=== PATIENT | male | born 1950 | race Caucasian/White ===

== ENCOUNTER 2016-11-28 10:11 | Emergency (ER) | payer OTHER ==
[~2016-11-28] VITALS: Ht 167.6 cm; Wt 88.4 kg
[2016-11-28 10:57] LABS: BASOPHIL COUNT 0.1 K/uL (0-0.1); EOSINOPHIL (%) 3.1 % (0-5); EOSINOPHIL COUNT 0.3 K/uL (0-0.3); HEMATOCRIT 44.7 % (38.0-50.0); IMMATURE GRANULOCYTE (%) 0.3 % (0.0-0.7); LYMPHOCYTE COUNT 2.1 K/uL (1.0-2.8); MCH 33.6 PG (29.0-34.0); MCHC 34.5 G/DL (30.0-36.0); MCV 97.4 FL (86-99); MEAN PLAT.VOLUME 8.7 uM^3 (9.0-12.4); MONOCYTE (%) 7.2 % (3-12); MONOCYTE COUNT 0.6 K/uL (0-0.8); NEUTROPHIL (%) 62.3 % (45-76); PLATELET COUNT 260 K/uL (156-360); RBC DIS.WIDTH-CV 13.4 % (11.8-14.6); RBC DIS.WIDTH-SD 48.8 % (39-53); RED BLOOD COUNT 4.59 M/uL (4.00-5.50)
[2016-11-28 11:08] LABS: CHLORIDE 104 mEq/L (99-109); POTASSIUM 4.3 mEq/L (3.7-5.4); SODIUM 141 mEq/L (136-147)
[2016-11-28 11:10] LABS: GLUCOSE 100 mg/dL (70-99)
[2016-11-28 11:11] LABS: ANION GAP 11 MEQ/L (2-14)
[2016-11-28 11:14] LABS: GFR ESTIMATE (CALCULATED) > 59 mL/min/
[2016-11-28 11:15] LABS: UREA NITROGEN (BUN) 16 mg/dL (9-23)
[2016-11-28 11:16] LABS: CREATINE KINASE 232 IU/L (1-294); TOTAL CK 232 IU/L (1-294)
[2016-11-28 11:26] LABS: CK-MB 7.5 ng/mL (0.0-4.9)
[2016-11-28 13:12] VITALS: BP 145/77
== END 2016-11-28 13:12 | disposition home or self-care (01) ==
LOC: EME 10:11
PROVIDERS: Emergency Medicine
DX: S80.11XA Contusion of right lower leg, initial encounter (principal); W18.2XXA Fall in (into) shower or empty bathtub, initial encounter; Y93.E1 Activity, personal bathing and showering; Y92.002 Bathroom of unspecified non-institutional (private) residence as the place of occurrence of the external cause; I48.91 Unspecified atrial fibrillation; Z79.82 Long term (current) use of aspirin; F17.200 Nicotine dependence, unspecified, uncomplicated
CPT/HCPCS: 73590; 80048; 82550; 82553; 85025; 99281; 99283

== ENCOUNTER → 2017-09-03 | Outpatient (CLI) | payer MEDICARE, OTHER | END | disposition home or self-care (01) | LOC: CDC 14:44 | DX: Z01.810 Encounter for preprocedural cardiovascular examination (principal); K62.1 Rectal polyp; R94.31 Abnormal electrocardiogram [ECG] [EKG] | CPT/HCPCS: 93000 ==

== ENCOUNTER 2017-09-16 13:30 | Day surgery (SDC) | payer OTHER ==
[~2017-09-16] VITALS: Ht 167.6 cm; Wt 84.8 kg
[~2017-09-16 13:30] MED LIST: ALLERGY RELIEF60 MG PO; ASCORBIC ACID500 M3 PO; BENADRYL50 MG PO; DAILY VALUE1 EACH PO; FLEXERIL10 MG PO; LITE COAT ASPI325 M1 PO; LOTENSIN HCT1 TABLE1 PO; SYNTHROID75 MCG PO; VITAMIN A10000 UNIT PO; VITAMIN E400 UNIT PO; ZOCOR10 MG PO; ZOVIRAX400 MG PO
[2017-09-16] MEDS ORDERED: LO-DOSE ASPIRIN81 M2 PO (13:54)
[2017-09-16 13:59] VITALS: BP 137/64
[2017-09-16] MEDS ORDERED: NORCO 5/3251 TABLET PO (18:06)
[2017-09-16 18:40] VITALS: BP 157/88
[2017-09-16 19:14] VITALS: BP 154/83
== END 2017-09-16 19:33 | disposition home or self-care (01) ==
LOC: SDC 13:30
DX: K64.8 Other hemorrhoids (principal); K62.1 Rectal polyp; I10 Essential (primary) hypertension; I25.10 Atherosclerotic heart disease of native coronary artery without angina pectoris; I48.91 Unspecified atrial fibrillation; K57.30 Diverticulosis of large intestine without perforation or abscess without bleeding; G47.30 Sleep apnea, unspecified; E78.5 Hyperlipidemia, unspecified; F17.210 Nicotine dependence, cigarettes, uncomplicated; Z79.82 Long term (current) use of aspirin
CPT/HCPCS: 88304; J1100; J1335; J1885; J2250; J2405; J3010; J7050; J7643; S0020